=== PATIENT | female | born 1995 | race African-American/Black ===

== ENCOUNTER 2017-07-06 21:20 | Emergency (ER) | payer OTHER ==
[2017-07-06] MEDS ORDERED: MAG HYDROX/AL HYDROX/SIMETH 30 ML UDC PO STA (23:46)
[2017-07-06] MEDS ORDERED: LIDOCAINE VISCOUS 2% 15 ML UDC MM STA (23:46)
[2017-07-07] MEDS ORDERED: MAG HYDROX/AL HYDROX/SIMETH 30 ML UDC ONE (01:03)
[2017-07-07] MEDS ORDERED: LIDOCAINE VISCOUS 2% 15 ML UDC MM ONE (01:03)
--- NOTE | 2017-07-07 01:33 | Ultrasound Preliminary Report ---
Exam: US OB First Trimester IMPRESSION: 1. Single viable intrauterine at EGA 9 weeks 3 days with FERMIN 02/05/2018 based on crown-rump length, which is concordant with clinical dates. 2. Assigned dating is FERMIN 02/05/2018 based on LMP. 3. Corpus luteum on the left ovary. [facility] SITE ID: [id number]
--- NOTE | 2017-07-07 01:34 | ED Physician Documentation ---
PD HPI ABD PAIN - Stated complaint Stated Complaint: VOMIT BLOOD - Chief complaint Chief Complaint: Abd Pain - History obtained from History obtained from: Patient, Family - History of Present Illness Timing - onset: Today Timing - duration: Hours Timing - details: Abrupt onset, Still present Quality: Sharp, Pain Location: Epigastric Improved by: Laying still Worsened by: Eating Associated symptoms: Nausea, Vomiting, Hematemesis Similar symptoms before: Has not had sx before Recently seen: Clinic (Seen in the OB clinic today) - Additional information Additional information: 21-year-old female believes she is about 10 weeks has developed some vomiting today and she had some blood tinged to the vomit she is continuing to be nauseated and has epigastric pain. She has not had an ultrasound during this but she is going to see the SERVICES MANAGER at the clinic today. She has an appointment in 4 days time. She has had nausea in the mornings but she has not had any vomiting so far during this . This is the first episode of vomiting. Review of Systems Constitutional: denies: Fever Eyes: denies: Decreased vision Ears: denies: Ear pain Nose: denies: Congestion Throat: denies: Sore throat Cardiac: denies: Chest pain / pressure, Palpitations Respiratory: denies: Dyspnea, Cough GI: reports: Abdominal Pain, Nausea, Vomiting : denies: Dysuria, Frequency Skin: denies: Rash Musculoskeletal: denies: Neck pain, Back pain PD PAST MEDICAL HISTORY - Past Medical History Past Medical History: No Cardiovascular: None Respiratory: None Neuro: None Endocrine/Autoimmune: None GI: None HEALTH COORDINATOR: None : None HEENT: None Psych: None Musculoskeletal: None Derm: None - Past Surgical History Past Surgical History: No - Allergies Allergies/Adverse Reactions: Allergies Allergy/AdvReac Type Severity Reaction Status Date / Time Penicillins AdvReac Itching Verified 07/06/17 21:29 - Social History Does the pt smoke?: No Smoking Status: Never smoker Does the pt drink ETOH?: No Does the pt have substance abuse?: No - Immunizations Immunizations are current?: Yes - POLST Patient has POLST: No PD ED PE NORMAL - Vitals Vital signs reviewed: Yes (Hypertensive mild) - General General: Alert and oriented X 3, No acute distress, Well developed/nourished - HEENT HEENT: Atraumatic, PERRL, EOMI - Neck Neck: Supple, no meningeal sign - Cardiac Cardiac: RRR, No murmur - Respiratory Respiratory: No respiratory distress, Clear bilaterally - Abdomen Abdomen: Soft, Non tender - Back Back: No CVA TTP, No spinal TTP - Derm Derm: Normal color, Warm and dry, No rash - Extremities Extremities: No deformity, No edema - Neuro Neuro: No motor deficit, No sensory deficit - Psych Psych: Normal mood, Normal affect Results - Vitals Vitals: Vital Signs - 24 hr 07/06/17 07/06/17 21:24 22:50 Temperature 36.3 C L 36.6 C Heart Rate 93 76 Respiratory 16 18 Rate Blood Pressure 134/77 H 115/71 O2 Saturation 100 96 Oxygen O2 Source Room air - Labs Labs: Laboratory Tests 07/06/17 23:58 HCG, Quant 41508.00 - Rads (name of study) ultrasound OB Radiology: Prelim report reviewed (Impression: 1. Single viable intrauterine a EGA 9 weeks 3 days by FERMIN 02/05/2018 based on crown-rump length which is concordant with clinical dates. 2. Asigned dating is FERMIN 02/05/2018 based on LMP. 3. Corpus luteum on the left ovary.), EMP read indepedently, See rad report PD MEDICAL DECISION MAKING - ED course Complexity details: reviewed results, re-evaluated patient, considered differential, d/w patient, d/w family ED course: 21-year-old female first trimester with abdominal pain and hematemesis has improvement in her pain with use of viscous lidocaine Mylanta and she has a intrauterine on ultrasound today. She has follow-up with her PART TIME in 4 days time. Departure - Departure Disposition: 01 Home, Self Care Clinical Impression: First trimester Gastritis Qualifiers: Gastritis type: unspecified gastritis Chronicity: acute Gastritis bleeding: with bleeding Qualified Code(s): K29.01 - Acute gastritis with bleeding Condition: Stable Instructions: ED PUD Vs Gastritis, ED Preg Morning Sickness Follow-Up: Lucia Manuel ARNP [Primary Care Provider] - Forms: Activity restrictions
--- NOTE | 2017-07-07 01:35 | Ultrasound Report ---
EXAM: FIRST TRIMESTER OBSTETRIC ULTRASOUND (Less than 11 weeks) EXAM DATE: 07/07/2017 12:52 AM. CLINICAL HISTORY: Abdominal pain . LMP: 05/01/2017. COMPARISONS: None. TECHNIQUE: Transabdominal and transvaginal ultrasound examination with static image documentation. CLINICAL DATES: EGA 9 weeks 3 days with FERMIN 02/05/2018 based on LMP. ASSESSMENT: Gestational Sac: Single intrauterine. Mean gestational sac diameter: 40 mm = 9 weeks 2 days. Embryo: CRL (crown-rump length) 28 mm = 9 weeks 3 days. Cardiac activity: 166 beats per minute. Yolk sac: 5 mm. Amniotic fluid: Not accurately assessed at this gestational age. Early placenta: Not visible at this gestational age. Other: No perigestational fluid collection demonstrated. MATERNAL STRUCTURES: Uterus: Anteverted. Unremarkable. Cervix: Closed. Trace fluid in the endocervical canal. Right Ovary/Adnexa: Unremarkable. The ovary measures 3.0 x 1.4 x 3.5 cm, volume 7.6 cc. Left Ovary/Adnexa: Corpus luteum measuring 1.8 x 1.7 x 2.6 cm. The ovary measures 2.9 x 2.4 x 3.5 cm , volume 12.8 cc. Free Fluid: None. Other: None. IMPRESSION: 1. Single viable intrauterine at EGA 9 weeks 3 days with FERMIN 02/05/2018 based on crown-rump length, which is concordant with clinical dates. 2. Assigned dating is FERMIN 02/05/2018 based on LMP. 3. Corpus luteum on the left ovary. [facility] Referring Provider Line: [phone] SITE ID: [id number]
[2017-07-07 01:52] VITALS: BP 120/82
== END 2017-07-07 01:52 | disposition home or self-care (01) ==
LOC: ED 21:20
DX: O99.611 Diseases of the digestive system complicating pregnancy, first trimester (principal); K29.01 Acute gastritis with bleeding; O34.81 Maternal care for other abnormalities of pelvic organs, first trimester; N83.12 Corpus luteum cyst of left ovary; Z3A.09 9 weeks gestation of pregnancy
CPT/HCPCS: 36415; 76801; 76817; 84702; 99283; 99284; A9270

== ENCOUNTER 2017-08-18 12:36 | Emergency (ER) | payer OTHER ==
[2017-08-18 12:54] VITALS: BP 135/74
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
== END 2017-08-18 13:50 | disposition home or self-care (01) ==
LOC: ED 12:36
DX: O26.892 Other specified pregnancy related conditions, second trimester (principal); R10.84 Generalized abdominal pain; Z3A.14 14 weeks gestation of pregnancy; W20.8XXA Other cause of strike by thrown, projected or falling object, initial encounter; Y99.0 Civilian activity done for income or pay
CPT/HCPCS: 99282

== ENCOUNTER 2017-09-13 18:13 | Emergency (ER) | payer OTHER ==
[2017-09-13 18:24] VITALS: BP 151/100
[2017-09-13] MEDS ORDERED: LIDOCAINE 2%-EPI 1:100000 20 ML MDV SUBQ STA (19:01)
[2017-09-13] MEDS ORDERED: LIDOCAINE 2%-EPI 1:100000 20 ML MDV ONE (19:11)
--- NOTE | 2017-09-13 19:28 | ED Physician Documentation ---
History of Present Illness - Stated complaint Stated Complaint: RED BUMP IN ARMPIT - Chief complaint Chief Complaint: General - History obtained from History obtained from: Patient (pt is here for evaluation of a red lump uner her right arm. she states that it has increased in size over the past couple days. no fevers. staes that shw has other abscess in the past needing drainage.) Review of Systems Constitutional: denies: Fever, Chills Skin: reports: Lesions. denies: Abrasion (s), Laceration (s) Neurologic: reports: Other (no tingling down right arm) PD PAST MEDICAL HISTORY - Past Medical History Past Medical History: No Cardiovascular: None Respiratory: None Neuro: None Endocrine/Autoimmune: None GI: None HOME DEMONSTRATION AGENT: None : None HEENT: None Psych: None Musculoskeletal: None Derm: None - Past Surgical History Past Surgical History: No - Present Medications Home Medications: Ambulatory Orders Medication Instructions Recorded Confirmed Pnv95/Ferrous Fumarate/FA 1 each PO DAILY 09/13/17 09/13/17 [ Formula] - Allergies Allergies/Adverse Reactions: Allergies Allergy/AdvReac Type Severity Reaction Status Date / Time Penicillins AdvReac Itching Verified 09/13/17 18:23 - Social History Does the pt smoke?: No Smoking Status: Never smoker Does the pt drink ETOH?: No Does the pt have substance abuse?: No - Immunizations Immunizations are current?: Yes - POLST Patient has POLST: No PD ED PE NORMAL - Vitals Vital signs reviewed: Yes - General General: Alert and oriented X 3, Well developed/nourished - Cardiac Cardiac: Strong equal pulses (radial ) - Respiratory Respiratory: No respiratory distress - Derm Derm: Other (no rashes but does have a 3cm well defind lump uner the right arm on the chest wall,. ) - Neuro Neuro: Other (sensation intact to light touch to the right arm. ) Results - Vitals Vitals: Vital Signs - 24 hr 09/13/17 18:22 Temperature 36.4 C L Heart Rate 114 H Respiratory 12 Rate Blood Pressure 151/100 H O2 Saturation 100 Oxygen O2 Source Room air Procedures - Abscess I&D (location) right armpit Preparation: Confirmed with ultrasound, Lidocaine 2 %, With epi Incision: Incised with scalpel, Loculations broken Other: Pt tolerated well, Dressing applied - Bedside sono Bedside sono by EMP: soft tissue US for the induration of the aright armpit mass showing a pocket of fluid. PD MEDICAL DECISION MAKING - ED course Complexity details: d/w patient ED course: pt with abscess in right armpit. i&D performed with return of a ingrowing hair and pus. No packing placed because of the depth was so small. dressing placed. no cellulitis over the area. no indication for ABX. pt tolerated well. Departure - Departure Disposition: 01 Home, Self Care Clinical Impression: Abscess Condition: Good Instructions: ED Abscess IandD Follow-Up: Lucia Manuel ARNP [Primary Care Provider] - Comments: keep the area covered. You may shower as normal. Return to the ER for any new or worsening symptoms,
== END 2017-09-13 19:39 | disposition home or self-care (01) ==
LOC: ED 18:13
DX: L02.411 Cutaneous abscess of right axilla (principal)
CPT/HCPCS: 10060; 99282; 99283

== ENCOUNTER 2017-10-19 23:44 | Outpatient (CLI) | payer OTHER ==
[2017-10-20 00:17] VITALS: BP 124/72
== END 2017-10-20 00:47 | disposition home or self-care (01) ==
LOC: WFO 23:44 → FBP 23:46 → WFO 10-20 00:47
PROVIDERS: ATTEND Obstetrics & Gynecology
DX: Z34.02 Encounter for supervision of normal first pregnancy, second trimester (principal)
CPT/HCPCS: 99212

== ENCOUNTER 2017-11-28 14:29 | Outpatient (CLI) | payer OTHER ==
[2017-11-28 14:44] VITALS: BP 131/82
[2017-11-28 15:27] LABS: BILIRUBIN,URINE NEGATIVE (NEGATIVE); CLARITY,URINE CLEAR (CLEAR); GLUCOSE, URINE (UA) NEGATIVE (NEGATIVE); KETONES,URINE (UA) NEGATIVE (NEGATIVE); LEUKOCYTE ESTERASE, URINE NEGATIVE (NEGATIVE); NITRITE,URINE NEGATIVE (NEGATIVE); OCCULT BLOOD,URINE NEGATIVE (NEGATIVE); PROTEIN,URINE NEGATIVE (NEGATIVE); UROBILINOGEN,URINE 0.2 (NORMAL) E.U./dL (NORMAL)
--- NOTE | 2017-11-29 01:25 | CONSULTATION NOTE ---
DATE OF SERVICE: 11/28/2017 Physician: Jason Fairbanks MD IDENTIFICATION: The patient is a 22-year-old G1, P0, female whose due date is 01/31/2018. This makes her 30.6 weeks CHIEF COMPLAINT: Pelvic pain. HISTORY OF THE PRESENT ILLNESS: Patient states that roughly at 2 o'clock this morning, she had the onset of pelvic pain, which was sharp in nature. It appeared to be nonradiating. She states that she denies any causes or relief for this. She states progressively it is getting better with time. She denies any intercourse, trauma, or bleeding at this particular time. She denies any previous episodes. She is currently being taken care of at [facility]. She is being seen at their [facility]. PAST MEDICAL HISTORY: The patient denies any hypertensive, diabetic, cardiac, or pulmonary disease. PAST SURGICAL HISTORY: None. ALLERGIES 1. PENICILLIN. 2. STRAWBERRIES. 3. PINEAPPLE. CURRENT MEDICATIONS 1. vitamins, as well as B6. 2. She has also taken Zofran early in her for morning sickness. HABITS: The patient denies the use of alcohol, tobacco, or street or addictive drugs. SOCIAL HISTORY: The patient is to [employer]. She is a homemaker. PHYSICAL EXAMINATION GENERAL: A well-developed, well-nourished, black female in no acute distress at this time. She is talking and communicating on her cell phone upon first encounter. HEENT: Pupils equal, round. Extraocular muscles are intact. Thyroid is not palpably enlarged. HEART: Regular rate and rhythm without murmurs. LUNGS: Clear without rales or wheezes. ABDOMEN: The uterus fundus is nontender. She shows tenderness suprapubically at this time. The symphysis is only mildly tender. Speculum examination reveals a cervix which has a whitish discharge, compatible with normal cellular debris of the vagina. FFN was obtained. Internal examination reveals the cervix which is long, closed, and high. presenting part floated out of the pelvis easily. LABORATORY DATA: Urinalysis was unremarkable at this time. UA clear, specific gravity 1.020, negative for leukocytes, nitrites. FFN was obtained. IMPRESSION: A 22-year-old G1, P0, female, who is 30.6 weeks, who is O negative, without evidence of any kind of bleeding. ASSESSMENT: It is probably just a stretching pain from . PLAN: We will allow the patient to go home. Will contact her should the FFN be noted to be elevated and will tell her to return at that time. TD: 11/29/2017 01:23 HARSHA
== END 2017-11-28 16:10 | disposition home or self-care (01) ==
LOC: WFO 14:29 → FBP 14:31 → WFO 16:10
PROVIDERS: ATTEND Obstetrics & Gynecology
DX: Z34.03 Encounter for supervision of normal first pregnancy, third trimester (principal)
CPT/HCPCS: 81001; 81003; 82731; 87086; 99213

== ENCOUNTER 2018-08-06 17:43 | Outpatient (CLI) | payer OTHER | END 2018-08-06 17:44 | disposition EMS.NT | LOC: EMS 17:43 | PROVIDERS: ATTEND Surgery | DX: R10.10 Upper abdominal pain, unspecified (principal); Y04.2XXA Assault by strike against or bumped into by another person, initial encounter ==

== ENCOUNTER 2019-01-07 15:15 | Outpatient (CLI) | payer OTHER | END 2019-01-07 15:16 | disposition critical access hospital (66) | LOC: EMS 15:15 | PROVIDERS: ATTEND Surgery | DX: O9A.211 Injury, poisoning and certain other consequences of external causes complicating pregnancy, first trimester (principal); M25.561 Pain in right knee; R10.9 Unspecified abdominal pain | CPT/HCPCS: A0425; A0429 ==

== ENCOUNTER 2019-01-07 15:40 | Emergency (ER) | payer OTHER ==
[2019-01-07 15:57] VITALS: BP 140/79
[2019-01-07] MEDS ORDERED: MAG HYDROX/AL HYDROX/SIMETH 30 ML UDC PO STA (16:02)
[2019-01-07] MEDS ORDERED: LIDOCAINE VISCOUS 2% 15 ML UDC MM STA (16:02)
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
== END 2019-01-07 18:15 | disposition home or self-care (01) ==
LOC: EDUNIT# → ED 15:40
DX: O99.89 Other specified diseases and conditions complicating pregnancy, childbirth and the puerperium (principal); R10.13 Epigastric pain; O21.0 Mild hyperemesis gravidarum; Z3A.01 Less than 8 weeks gestation of pregnancy; S80.211A Abrasion, right knee, initial encounter; S90.812A Abrasion, left foot, initial encounter; Y03.0XXA Assault by being hit or run over by motor vehicle, initial encounter
CPT/HCPCS: 99283; A9270

== ENCOUNTER 2019-11-03 16:01 | Emergency (ER) | payer OTHER ==
[2019-11-03 16:08] VITALS: BP 141/76
--- NOTE | 2019-11-03 17:01 | ED Physician Documentation ---
PD HPI UPPER EXT INJURY - Stated complaint Stated Complaint: LT WRIST PX - Chief complaint Chief Complaint: Ext Problem - History obtained from History obtained from: Patient - History of Present Illness Location: Left, Wrist Type of injury: Other (Without specific injury for the last 5 months she has a pain along the radial side of the right wrist which is exacerbated by work.) Review of Systems Constitutional: reports: Reviewed and negative Cardiac: reports: Reviewed and negative Respiratory: reports: Reviewed and negative GI: reports: Reviewed and negative PD PAST MEDICAL HISTORY - Past Medical History Cardiovascular: None Respiratory: None Endocrine/Autoimmune: None GI: None FOUNDER AND CHIEF EXECUTIVE OFFICER: None : None HEENT: None Psych: None Musculoskeletal: None Derm: None - Past Surgical History Past Surgical History: Yes /FOUNDER AND CHIEF EXECUTIVE OFFICER: section - Present Medications Home Medications: Ambulatory Orders Medication Instructions Recorded Confirmed Meloxicam [Mobic] 7.5 mg PO BID PRN #20 tablet 11/03/19 - Allergies Allergies/Adverse Reactions: Allergies Allergy/AdvReac Type Severity Reaction Status Date / Time Penicillins AdvReac Itching Verified 11/03/19 16:05 - Social History Does the pt smoke?: No Smoking Status: Never smoker Does the pt drink ETOH?: No Does the pt have substance abuse?: No - Immunizations Immunizations are current?: Yes - POLST Patient has POLST: No PD ED PE NORMAL - Vitals Vital signs reviewed: Yes - General General: Alert and oriented X 3, No acute distress - Extremities Extremities: Other (There is no bony tenderness of the left wrist, that said de Quervain's testing is very positive. No limited range of motion in flexion or extension.) - Neuro Neuro: Alert and oriented X 3, Normal speech Results - Vitals Vitals: Vital Signs - 24 hr 11/03/19 16:05 Temperature 37.1 C Heart Rate 96 Respiratory 14 Rate Blood Pressure 141/76 H O2 Saturation 98 Oxygen O2 Source Room air PD MEDICAL DECISION MAKING - ED course ED course: This young lady with de Quervain's tenosynovitis. She is placed in a splint, a Thumb spica Velcro wrist splint and given light duty and NSAIDs Departure - Departure Disposition: Home, Self Care Clinical Impression: De Quervain's tenosynovitis, left Condition: Good Record reviewed to determine appropriate education?: Yes Instructions: ED De Quervain Tenosynovitis Prescriptions: Meloxicam [Mobic] 7.5 mg PO BID PRN #20 tablet PRN Reason: Pain Comments: Your examination is consistent with de Quervain's tenosynovitis which is the cause of your chronic left wrist pain. You need to follow-up with your doctor for further evaluation and treatment and consideration for physical therapy. Return for new or worsening symptoms. Forms: Activity restrictions
== END 2019-11-03 17:10 | disposition home or self-care (01) ==
LOC: ED 16:01
DX: M65.4 Radial styloid tenosynovitis [de Quervain] (principal)
CPT/HCPCS: 99282; 99283